=== PATIENT | female | born 1950 | race Caucasian/White ===

== ENCOUNTER 2021-06-18 09:59 | Emergency (ER) | payer MEDICARE, OTHER ==
[~2021-06-18] VITALS: Ht 160 cm; Wt 79.4 kg
[~2021-06-18 09:59] MED LIST: ADAL40PEN SC; ALBU90OI INH; ASPI81CH PO; CHOL10002 PO; ETOD400 PO; FOLI1 PO; HYDACE5 PO; HYDSUL200 PO; LEVO750 PO; METTREX2.5 PO; Omeprazole20 M1 PO; SIMV10 PO; SUCR1 PO; Tylenol W/Code120 ML PO
[2021-06-18] MEDS ORDERED: GABA300 PO (10:09)
== END 2021-06-18 11:42 | disposition home or self-care (01) ==
LOC: ER 09:59
DX: S62.622A Displaced fracture of middle phalanx of right middle finger, initial encounter for closed fracture (principal); X58.XXXA Exposure to other specified factors, initial encounter; Y93.K9 Activity, other involving animal care; Y92.009 Unspecified place in unspecified non-institutional (private) residence as the place of occurrence of the external cause
CPT/HCPCS: 26725; 73140; 99283-25